=== PATIENT | male | born 1985 ===

== ENCOUNTER → 2016-09-02 | Outpatient (REF) | payer BC ==
[2016-09-02 15:33] LABS: NON PROGRESSIVE MOTILITY (c) 15 %; PROGRESSIVE MOTILITY (a) 31 % (>=32); TOTAL MOTILITY 46 % (>=40)
[2016-09-02 15:34] LABS: % NORMAL FORMS 7 % (>=4); IMMOTILITY 54 %; SPERM# 339.7 M/Ejac (33-46); TOTAL FUNCTIONAL 17.1 M/Ejac.; TOTAL PROGRESSIVE SPERM 104.9 M/Ejac.
== END ==
LOC: M LAB REF 15:15
PROVIDERS: ATTEND Obstetrics & Gynecology
DX: Z31.41 Encounter for fertility testing (principal)